=== PATIENT | male | born 1935 | race Caucasian/White ===

== ENCOUNTER 2016-12-27 11:44 | Observation (INO) ==
--- NOTE | 2016-12-27 12:26 | Emergency Department Report ---
Lower Extremity Injury HPI - General Chief Complaint: Extremity Injury, Lower Stated Complaint: Leg/Hip Pain Time Seen by Provider: 12/27/16 12:05 Source: patient Mode of arrival: ambulatory Limitations: no limitations - History of Present Illness HPI Narrative: He was at home last night and fell onto his right hip. He has had pain in the right hip and more so in the right distal femur with weight bearing since then. He did go to his PCP office this morning and had xrays done that were negative but he continues to not be able to bear weight so he came to ER. complaint: leg injury Onset (ago): day(s) (1 day ago) Type of Injury: other (fall onto right side) Place: home Severity: moderate Relieving factors: nothing Exacerbating factors: nothing Context: fall Other symptoms: none - Related Data Home Medications Medication Instructions Recorded Confirmed Sertraline HCl [Zoloft] 50 mg PO DAILY #0 04/27/10 12/27/16 Tamsulosin HCl [Flomax] 0.4 mg PO HS #0 04/27/10 12/27/16 Pravastatin Sodium 40 mg PO HS #0 08/06/12 12/27/16 [place]-3 Fatty Acids/Fish Oil [Fish 2,000 mg PO DAILY #0 02/12/14 12/27/16 Oil 1,000 mg Capsule] aspirin 81 mg tablet,delayed 81 mg PO Q24HR tab 10/27/16 12/27/16 release calcium carbonate-vitamin D3 600 1 cap PO DAILY 10/27/16 12/27/16 mg (1,500 mg)-400 unit capsule cholecalciferol (vitamin D3) 1,000 1,000 unit PO DAILY cap 10/27/16 12/27/16 unit capsule multivitamin tablet 1 cap PO QAM 10/27/16 12/27/16 FentaNYL PATCH [Duragesic Patch] 1 patch TD Q72H 12/27/16 12/27/16 Previous Rx's Medication Instructions Recorded alprazolam 0.5 mg tablet 0.5 mg PO HS PRN #30 tab 09/29/16 Prilosec (Omeprazole) 20 mg 20 mg PO DAILY #14 cap 10/30/16 capsule,delayed release finasteride 5 mg tablet 5 mg PO DAILY #90 tab 11/13/16 ondansetron 4 mg disintegrating 4 mg PO Q6H PRN #30 tab 12/01/16 tablet Zantac (Ranitidine) 150 mg tablet 150 mg PO HS #30 tab 12/02/16 Allergies Allergy/AdvReac Type Severity Reaction Status Date / Time amoxicillin Allergy Severe HIVES Verified 12/27/16 16:51 morphine Allergy Unknown NAUSEA Verified 12/27/16 16:51 simvastatin Allergy Unknown ELEVATED Verified 12/27/16 16:51 LIVER ENZYMES Penicillins Allergy Verified 12/27/16 16:51 hydrocodone AdvReac Unknown N/V Verified 12/27/16 16:51 Review of Systems Constitutional: Denies: fever, chills, weakness Musculoskeletal: Reports: other (right leg pain, in femur with weight bearing.) Integumentary: Denies: rash Neurological: Denies: headache, weakness, numbness, paresthesias PFSH Patient Stated Medical History Other HEENT Yes: Wears glasses Hx Benign Prostatic Yes Hyperplasia Osteoarthritis Yes Other [facility]al [facility]: [facility] Medical History BPH (benign prostatic hyperplasia) (Chronic Medical) Cervical disc disease (Chronic Medical) Depression (Chronic Medical) Hypercholesteremia (Chronic Medical) Osteoarthritis cervical spine (Chronic Medical) PUD (peptic ulcer disease) (Chronic Medical) RBBB (Chronic Medical) Surgical History: L shoulder impingement-1986. Left THR-2012. Colonoscopy: 2001, 07/2006 (5). Cervical spine surgery (ant approach) 12/20. Right THR - . L carotid endarterectomy - 03/2008. colonoscopy - 2006 (5). L carpal tunnel release (Aryan) 05/29 Family History: Family History Father , 71 Myocardial infarct Mother , 85 Colon cancer Brother HTN (hypertension) - Social History Smoking status: Never smoker Physical Exam - Limitations Limitations: no limitations - General General appearance: alert, in no apparent distress - Normal Exams: Neck:: Full range of motion, without adenopathy, JVD, bruits or thyromegaly Chest/Respirations:: Clear all vyas, with good airflow, and symmetry bilaterally Cardiovascular:: Regular rate and rhythm, without murmur or gallop, Pulses 2+ all extremities, capillary refill, <2 seconds all extremities Abdomen:: Bowel sounds positive, soft, non-tender, non-distended, no hepatosplenomegaly, masses or bruits noted Integumentary:: No rashes, hives, or bruising noted Neurological:: Patient is alert, and oriented Psychiatric:: Patient exhibits, appropriate attention, emotion and affect - Expanded Lower Extremity Exam Hip/Pelvis exam: Present: normal inspection, tenderness (Mild TTP along the right lateral greater trochanter and the anterior distal femur). Absent: full ROM (He does report pain in the anterior femur when extending the right leg at the hip passively and actively), swelling, abrasion, ecchymosis, deformity Upper leg exam: Present: normal inspection, full ROM, tenderness (mild TTP along the distal anterior femur). Absent: swelling, abrasion, ecchymosis, deformity Knee exam: Present: normal inspection, full ROM. Absent: tenderness, swelling, abrasion, ecchymosis, deformity Lower leg exam: Present: normal inspection, full ROM. Absent: tenderness, swelling, abrasion, ecchymosis, deformity Ankle exam: Present: normal inspection, full ROM. Absent: tenderness, swelling , abrasion, ecchymosis, deformity Foot/toe exam: Present: normal inspection, full ROM. Absent: tenderness, swelling, abrasion, ecchymosis, deformity Neurovascular/Tendon exam: Present: normal capillary refill. Absent: pulse deficit Course Vital Signs Temperature 98.0 F 12/27/16 11:56 Pulse Rate 75 12/27/16 11:56 Respiratory Rate 18 12/27/16 11:56 Blood Pressure 129/61 12/27/16 11:56 Pulse Oximetry 93 12/27/16 11:56 Temperature 97.9 F 12/27/16 16:09 Pulse Rate 73 12/27/16 16:09 Respiratory Rate 18 12/27/16 16:09 Blood Pressure 161/55 H 12/27/16 16:09 Pulse Oximetry 96 12/27/16 16:09 Extremity Injury, Lower - MDM Narrative Medical decision making narrative: CT of pelvis does show a periprosthetic fracture. CT of femur shows some swelling around the quadriceps muscle. Did talk with Dr Franklin. He does recommend patient to be toe touch weight bearing. IRU has come to ER and evaluated patient for possible admission. He does not meet medical necessity for admission to IRU. Given that he cannot put weight on his right leg without it giving out on him did talk with social work. Kayla does feel if he is admitted OBS then they can evaluate saftey and work on dismissal planning if needed after PT eval. Did speak with Dr Franklin and he will admit OBS. - Differential Diagnosis Likely: fracture of femur, fracture of hip - Radiology Data Attestation: I reviewed the patient's radiology results. Date of Exam: 12/27/16 Ordering Provider: Edwige Bridges APRN Type of Exam(s): CT pelvis wo con Reason for Exam(s): fall, pelvic pain Indication: fall, pelvic pain PROCEDURE: CT pelvis wo con: Encounter: Initial Comparison: Hip radiographs from earlier today Technique: Axial noncontrast CT imaging through the pelvis with coronal and sagittal two-dimensional reformats. Automated Exposure Control and Iterative Reconstruction dose reducing techniques were utilized. Findings: Metallic artifact from bilateral total hip replacements. Bony demineralization limiting detection of nondisplaced fractures. Subtle nondisplaced fracture of the anterior and lateral cortex of the right proximal femur near the distal aspect of the femoral stem. This is best seen on coronal images 28 through 30. This is not discretely visible on the comparison radiographs. Degenerative change in the lower lumbar spine and sacroiliac joints. Old appearing deformity of the right superior pubic ramus. No additional acute fracture or dislocation seen. The visualized soft tissues of the pelvis are unremarkable. Evaluation is limited by metallic streak artifact from the hip replacements. There is some muscular swelling in the right quadriceps musculature that could represent contusion or small areas of intramuscular hematoma. Impression: Closed post traumatic nondisplaced periprosthetic cortical fracture of the right femoral diaphysis. Disposition Clinical Impression: Hip fracture, right Qualifiers: Encounter type: initial encounter Fracture type: closed Qualified Code(s): S72.001A - Fracture of unspecified part of neck of right femur, initial encounter for closed fracture Disposition: 02 To O[facility] [place] Condition: Stable Time of Disposition: 14:56 - Seen By: midlevel
--- NOTE | 2016-12-27 13:09 | CT Scan Report ---
Indication: fall, pelvic pain PROCEDURE: CT pelvis wo con: Encounter: Initial Comparison: Hip radiographs from earlier today Technique: Axial noncontrast CT imaging through the pelvis with coronal and sagittal two-dimensional reformats. Automated Exposure Control and Iterative Reconstruction dose reducing techniques were utilized. Findings: Metallic artifact from bilateral total hip replacements. Bony demineralization limiting detection of nondisplaced fractures. Subtle nondisplaced fracture of the anterior and lateral cortex of the right proximal femur near the distal aspect of the femoral stem. This is best seen on coronal images 28 through 30. This is not discretely visible on the comparison radiographs. Degenerative change in the lower lumbar spine and sacroiliac joints. Old appearing deformity of the right superior pubic ramus. No additional acute fracture or dislocation seen. The visualized soft tissues of the pelvis are unremarkable. Evaluation is limited by metallic streak artifact from the hip replacements. There is some muscular swelling in the right quadriceps musculature that could represent contusion or small areas of intramuscular hematoma. Impression: Closed post traumatic nondisplaced periprosthetic cortical fracture of the right femoral diaphysis. .
--- NOTE | 2016-12-27 13:25 | CT Scan Report ---
Indication: fall, unable to bear weight on right leg PROCEDURE: CT LE RT wo con: Encounter: Initial Comparison: CT pelvis from today Technique: Axial noncontrast CT imaging of the right femur was performed with coronal and sagittal two-dimensional reformats. Imaging extended through the midportion of the tibia and fibula. Three-dimensional surface shaded volume rendered imaging was also created and reviewed. Automated Exposure Control and Iterative Reconstruction dose reducing techniques were utilized. Findings: Right total hip prosthesis. There is redemonstration of the nondisplaced cortical fracture of the proximal to mid femoral diaphysis. This is described on the CT pelvis exam. There is no evidence of prosthetic loosening or failure currently. Bony demineralization. No additional fractures involving the more distal femur or visualized portions of the lower leg. Mild osteoarthritic changes seen in the knee. Scattered arterial vascular calcifications. No new soft tissue abnormalities seen. Impression: Periprosthetic cortical fracture of the proximal femur. .
[2016-12-27] MEDS ORDERED: Oxycodone/Acetaminophen 5/325 1 TAB PO ONE (14:25)
[2016-12-27] MEDS ORDERED: ONDANSETRON ODT 4 MG TABLET PO ONE (14:32)
[2016-12-27] MEDS ORDERED: ALPRAZolam 0.5 MG TABLET PO PRN (15:47)
[2016-12-27] MEDS ORDERED: ONDANSETRON ODT 4 MG TABLET PO PRN (15:47)
[2016-12-27] MEDS: ASPIRIN *EC* 81 MG TABLET PO SCH (17:59)
[2016-12-27] MEDS: Oxycodone/Acetaminophen 5/325 1 TAB PO PRN (20:52)
[2016-12-27] MEDS ORDERED: TAMSULOSIN 0.4 MG CAPSULE PO SCH (21:00)
[2016-12-27] MEDS ORDERED: RANITIDINE 150 MG TABLET PO SCH (21:00)
[2016-12-27] MEDS ORDERED: PRAVASTATIN 40 MG TABLET PO SCH (21:00)
[2016-12-28] MEDS: Oxycodone/Acetaminophen 5/325 1 TAB PO PRN ×2 (05:36→15:09)
[2016-12-28] MEDS ORDERED: OMEPRAZOLE 20 MG CAPSULE PO SCH (06:30)
--- NOTE | 2016-12-28 07:32 | Orthopedic History & Physical ---
Orthopedic HPI - HPI Comments Robin is an 81 year old male who fell on his right hip at home yesterday . He had immediate pain which would worsen with weight bearing. He presented to Dr. Anton, his PCP, where X-rays were taken and thought to be negative for fracture. His pain persisted and thus he presented to the ER where a CT scan revealed a nondisplaced right periprosthetic fracture. Dr Franklin was notified, agreed to admit for observation initially, and is recommending non operative care at this time. He is presently toe touch weight bearing on the right side. His right [place] [address] Baeza but is now followed by Dr. Franklin. He denies hitting his head, chest pain, shortness of breath, abdominal pain, numbness. [facility] Patient Stated Medical History Cataracts Yes Hearing Loss Yes: LEFT HEARING AID Hx Benign Prostatic Yes Hyperplasia Osteoarthritis Yes Other Behavioral Health Yes: [facility] Medical History BPH (benign prostatic hyperplasia) (Chronic Medical) Cervical disc disease (Chronic Medical) Depression (Chronic Medical) Hypercholesteremia (Chronic Medical) Osteoarthritis cervical spine (Chronic Medical) PUD (peptic ulcer disease) (Chronic Medical) RBBB (Chronic Medical) Surgical History: L shoulder impingement-1986. Left THR-2012. Colonoscopy: 2001, 07/2006 (5). Cervical spine surgery (ant approach) 12/20. Right THR - . L carotid endarterectomy - 03/2008. colonoscopy - 2006 (5). L carpal tunnel release (Aryan) 05/29 Family History: Family History Father , 71 Myocardial infarct Mother , 85 Colon cancer Brother HTN (hypertension) - Social History Smoking status: Never smoker Review of Systems - Constitutional Constitutional: Absent: chills, fatigue - EENT Eyes: Absent: pain Ears, nose, mouth, throat: Absent: head injury, ear pain - Cardiovascular Cardiovascular: Absent: chest pain Vascular: Absent: pedal edema - Respiratory Respiratory: Absent: cough - Gastrointestinal Gastrointestinal: Absent: abdominal pain - Musculoskeletal Musculoskeletal: Present: abnormal gait, limited range of motion. Absent: myalgias - Integumentary/Breasts Integumentary: Absent: wounds - Neurological Neurological: Absent: numbness - Psychiatric Psychiatric: Absent: depression - Endocrine Endocrine: Absent: cold intolerance Medications Home Medications Medication Instructions Recorded Confirmed Type Sertraline HCl [Zoloft] 50 mg PO DAILY #0 04/27/10 12/27/16 History Tamsulosin HCl [Flomax] 0.4 mg PO HS #0 04/27/10 12/27/16 History Pravastatin Sodium 40 mg PO HS #0 08/06/12 12/27/16 History [place]-3 Fatty Acids/Fish Oil [Fish 2,000 mg PO DAILY #0 02/12/14 12/27/16 History Oil 1,000 mg Capsule] aspirin 81 mg tablet,delayed 81 mg PO Q24HR tab 10/27/16 12/27/16 History release calcium carbonate-vitamin D3 600 1 cap PO DAILY 10/27/16 12/27/16 History mg (1,500 mg)-400 unit capsule cholecalciferol (vitamin D3) 1,000 1,000 unit PO DAILY cap 10/27/16 12/27/16 History unit capsule multivitamin tablet 1 cap PO QAM 10/27/16 12/27/16 History FentaNYL PATCH [Duragesic Patch] 1 patch TD Q72H 12/27/16 12/27/16 History Allergies Allergy/AdvReac Type Severity Reaction Status Date / Time amoxicillin Allergy Severe HIVES Verified 12/27/16 16:51 morphine Allergy Unknown NAUSEA Verified 12/27/16 16:51 simvastatin Allergy Unknown ELEVATED Verified 12/27/16 16:51 LIVER ENZYMES Penicillins Allergy Verified 12/27/16 16:51 hydrocodone AdvReac Unknown N/V Verified 12/27/16 16:51 Orthopedic Exam Vital signs: Temperature 96.3 F L 12/28/16 00:00 Pulse Rate 81 12/28/16 00:00 Respiratory Rate 18 12/28/16 00:00 Blood Pressure 110/56 12/28/16 00:00 Pulse Oximetry 95 12/28/16 00:00 - Constitutional General Appearance: Present: alert, orientated x3 - Respiratory Exam Present: non-labored - Cardiovascular Exam Capillary Refill: < 2-3 Seconds - Abdominal Exam Absent: tenderness - Extremities Exam Present: pulses intact, tenderness, joint swelling. Absent: calf tenderness - Integumentary Exam Present: pink, warm, dry - Neurological Exam Present: intact to light touch, no deficits - Psychiatric Exam Present: alert - Diagnostic results Hip CT: report reviewed, image reviewed (pelvis CT reviewed as well) Orthopedic Assessment and Plan (1) Periprosthetic fracture around internal prosthetic right hip joint Status: Acute Qualifiers: Encounter type: initial encounter Qualified Code(s): M97.01XA - Periprosthetic fracture around internal prosthetic right hip joint, initial encounter Assessment and Plan: Non operative care at this time. Dr. Franklin is recommending toe touch weight bearing. - Anticoagulation Therapy Anticoagulation: other Hospital Course Summary Disclaimer: The visit summary below is not to be considered part of the above Progress Note.
[2016-12-28 08:03] VITALS: RESP 16
[2016-12-28] MEDS ORDERED: SERTRALINE 50 MG TABLET PO SCH (09:00)
[2016-12-28] MEDS ORDERED: CALCIUM 500 + VIT D 200 TABLET PO SCH (09:00)
[2016-12-28] MEDS ORDERED: MULTI-VITAMIN PLAIN TABLET PO SCH (09:00)
[2016-12-28] MEDS ORDERED: OMEGA-3 ACID ESTERS 1 GM CAPSULE PO SCH (09:00)
[2016-12-28] MEDS ORDERED: FINASTERIDE 5 MG TABLET PO SCH (09:00)
[2016-12-28 11:19] VITALS: BMI 22.8
[2016-12-28] MEDS ORDERED: MAGNESIUM CITRATE 296ml PO ONE (12:30)
--- NOTE | 2016-12-28 14:22 | Consult Note ---
Consult Information - Data of Consult Consult date: 12/28/16 Requesting Physician: Mir Franklin MD Primary Care Provider: James Anton MD Family Provider: James Anton MD - Consult Narrative Reason for consult: medical evaluation History of present illness: Pt had a fall at home and came to the ED with a periprosthetic fracture. He was evaluated for IRU but did not meet admission criteria. Has no complaints except constipation. [facility] Patient Stated Medical History Cataracts Yes Hearing Loss Yes: LEFT HEARING AID Hx Benign Prostatic Yes Hyperplasia Osteoarthritis Yes Other Behavioral [facility] Yes: [facility] Medical History BPH (benign prostatic hyperplasia) (Chronic Medical) Cervical disc disease (Chronic Medical) Depression (Chronic Medical) Hypercholesteremia (Chronic Medical) Osteoarthritis cervical spine (Chronic Medical) PUD (peptic ulcer disease) (Chronic Medical) RBBB (Chronic Medical) Surgical History: L shoulder impingement-1986. Left THR-2012. Colonoscopy: 2001, 07/2006 (5). Cervical spine surgery (ant approach) 12/20. Right THR - . L carotid endarterectomy - 03/2008. colonoscopy - 2006 (5). L carpal tunnel release (Aryan) 05/29 Family History: Family History Father , 71 Myocardial infarct Mother , 85 Colon cancer Brother HTN (hypertension) - Social History Smoking status: Never smoker Review of Systems Comprehensive ROS: completed and no additional positive findings except those as stated Review of systems: Last BM 7 days ago. - Cardiovascular Vascular: Absent: pedal edema Medications Home Medications Medication Instructions Recorded Confirmed Type Sertraline HCl [Zoloft] 50 mg PO DAILY #0 04/27/10 12/27/16 History Tamsulosin HCl [Flomax] 0.4 mg PO HS #0 04/27/10 12/27/16 History Pravastatin Sodium 40 mg PO HS #0 08/06/12 12/27/16 History [place]-3 Fatty Acids/Fish Oil [Fish 2,000 mg PO DAILY #0 02/12/14 12/27/16 History Oil 1,000 mg Capsule] aspirin 81 mg tablet,delayed 81 mg PO Q24HR tab 10/27/16 12/27/16 History release calcium carbonate-vitamin D3 600 1 cap PO DAILY 10/27/16 12/27/16 History mg (1,500 mg)-400 unit capsule cholecalciferol (vitamin D3) 1,000 1,000 unit PO DAILY cap 10/27/16 12/27/16 History unit capsule multivitamin tablet 1 cap PO QAM 10/27/16 12/27/16 History FentaNYL PATCH [Duragesic Patch] 1 patch TD Q72H 12/27/16 12/27/16 History Allergies Allergy/AdvReac Type Severity Reaction Status Date / Time amoxicillin Allergy Severe HIVES Verified 12/27/16 16:51 morphine Allergy Unknown NAUSEA Verified 12/27/16 16:51 simvastatin Allergy Unknown ELEVATED Verified 12/27/16 16:51 LIVER ENZYMES Penicillins Allergy Verified 12/27/16 16:51 hydrocodone AdvReac Unknown N/V Verified 12/27/16 16:51 Exam Vital Signs: Temperature 96.3 F L 12/28/16 00:00 Pulse Rate 75 12/28/16 08:00 Respiratory Rate 16 12/28/16 08:00 Blood Pressure 155/79 H 12/28/16 08:00 Pulse Oximetry 97 12/28/16 08:00 Height/Weight/BMI: Height 5 ft 11 in Weight 74.389 kg Body Mass Index 22.8 - Constitutional Present: no acute distress - Routine HEENT Exam Head: Present: normocephalic, atraumatic Eye: Present: EOMI, PERRL - Routine Neck Exam Present: supple - Routine Respiratory Exam Present: CTA bilaterally - Routine Cardiovascular Exam Present: RRR, S1, S2 - Routine Abdominal Exam Present: soft, non distended, non tender - Routine Extremities Exam Absent: cyanosis, clubbing, edema - Routine Neurological Exam Present: alert, oriented X3, CN II-XII intact - Routine Psychiatric Exam Present: normal affect, cooperative, good insight, good judgment Assessment and Plan DVT Prophylaxis: other GI Prophylaxis: other Resuscitation Status: Full Code Assessment and Plan: Pt had a fall and has a carlene-prosthetic fracture. Pre-existing medical conditions appear to be stable. Dx 1) S/P fall - pt will be going home with home health. 2) Constipation - Will give 1 bottle of Mag Citrate. 3) Mild anemia - May workup as outpatient 4) HTN - Mostly systolic at present, may adjust meds as outpatient. Pt is medically stable to go home when deemed appropriate by Ortho. Prevention - SCD's - Ranitidine. - Time spent with patient 25 - 35 minutes Hospital Course Summary Disclaimer: The visit summary below is not to be considered part of the above Progress Note. Sepsis Assessment - Evaluation Sepsis screening result: No Definite Risk
[2016-12-28 16:34] VITALS: BP 115/63; PULSE 74; TEMP 96; O2SAT 92
--- NOTE | 2016-12-28 17:09 | Discharge Instructions ---
Discharge Plan - Med Rec/Dispo Referrals/Follow Up: Mir Franklin MD [Physician] - 2 Weeks Additional Instructions: Toe touch weight bearing on right leg. Up with assit and walker. Prescriptions: New Oxycodone/APAP 5/325 [Percocet 5/325] 1 - 2 tab PO Q4H PRN #60 tab PRN Reason: Pain Continue Pravastatin Sodium 40 mg PO HS #0 [place]-3 Fatty Acids/Fish Oil [Fish Oil 1,000 mg Capsule] 2,000 mg PO DAILY #0 Tamsulosin HCl [Flomax] 0.4 mg PO HS #0 Sertraline HCl [Zoloft] 50 mg PO DAILY #0 FentaNYL PATCH [Duragesic Patch] 1 patch TD Q72H aspirin 81 mg tablet,delayed release 81 mg PO Q24HR tab calcium carbonate-vitamin D3 600 mg (1,500 mg)-400 unit capsule 1 cap PO DAILY cholecalciferol (vitamin D3) 1,000 unit capsule 1,000 unit PO DAILY cap Prilosec (Omeprazole) 20 mg capsule,delayed release 20 mg PO DAILY #14 cap ondansetron 4 mg disintegrating tablet 4 mg PO Q6H PRN #30 tab PRN Reason: nausea and vomiting alprazolam 0.5 mg tablet 0.5 mg PO HS PRN #30 tab PRN Reason: insomnia multivitamin tablet 1 cap PO QAM finasteride 5 mg tablet 5 mg PO DAILY #90 tab Zantac (Ranitidine) 150 mg tablet 150 mg PO HS #30 tab - Disposition 04 To [facility] Home/Facility
[2016-12-28] MEDS: ASPIRIN *EC* 81 MG TABLET PO SCH (17:26)
== END 2016-12-28 18:54 ==
LOC: ED 11:44 → SRG 14:57 → INTOOBSV 14:57 → SRG 15:51
PROVIDERS: ADMIT Orthopaedic Surgery; ATTEND Orthopaedic Surgery